=== PATIENT | male | born 2000 | race Caucasian/White ===

== ENCOUNTER 2020-11-14 23:19 | Emergency (ER) | payer MEDICAID, MEDICARE ==
[~2020-11-14] VITALS: Ht 177.8 cm; Wt 108.9 kg
[2020-11-14 23:40] VITALS: BP_SYST 150
[2020-11-15] MEDS ORDERED: ACETAMINOPHEN 500 MG TABLET PO ONE (00:30)
[2020-11-15] MEDS ORDERED: cefTRIAXone 1 GM in LIDOCAINE 1%, 20 ML MDV 2.1 ML IM ONE (00:30)
[2020-11-15] MEDS ORDERED: CORTEARS EACH EAR (00:50)
[2020-11-15] MEDS ORDERED: AMOX-520 PO (00:51)
[2020-11-15 01:00] VITALS: BP_SYST 150
== END 2020-11-15 01:00 | disposition home or self-care (01) ==
LOC: SED 23:19
DX: H60.92 Unspecified otitis externa, left ear (principal); H66.92 Otitis media, unspecified, left ear; H72.92 Unspecified perforation of tympanic membrane, left ear; Z79.899 Other long term (current) drug therapy
CPT/HCPCS: 96372; 99283; J0696; J2001